=== PATIENT | male | born 1995 | race Hispanic/Latino ===

== ENCOUNTER 2023-11-29 13:40 | Emergency (ER) | payer BC, OTHER ==
[~2023-11-29] VITALS: Ht 175.3 cm; Wt 77.1 kg
[2023-11-29 13:44] VITALS: BP 155/94; PULSE 92; RESP 18
[2023-11-29 15:02] LABS: COVID19 (SARS ANTIGEN RAPID) PRESUMPTIVE NEGATIVE (NEGATIVE); INFLUENZA TYPE A Negative For Type A (NEGATIVE); INFLUENZA TYPE B Negative For Type B (NEGATIVE)
== END 2023-11-29 15:20 | disposition home or self-care (01) ==
LOC: EDH 13:40
DX: H65.193 Other acute nonsuppurative otitis media, bilateral (principal); Z88.6 Allergy status to analgesic agent; Z20.822 Contact with and (suspected) exposure to COVID-19
CPT/HCPCS: 87426; 87804